=== PATIENT | female | born 2000 | race Caucasian/White ===

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

== ENCOUNTER 2025-01-17 08:06 | Emergency (ER) | payer MEDICAID ==
[~2025-01-17] VITALS: Ht 157.5 cm; Wt 59.0 kg
[~2025-01-17 08:06] MED LIST: HYDR-4001 MT; IBUP-2029 MT
[2025-01-17 08:09] VITALS: BP 107/73; TEMP 37.2; O2SAT 99
[2025-01-17 08:14] VITALS: PULSE 99; RESP 22; O2SAT 99
[2025-01-17 08:34] LABS: BASOPHILS % 0.3 % (0.0-2.0); EOSINOPHILS % 0.1 % (0.0-5.0); HEMATOCRIT. 39.1 % (36.0-48.0); HEMOGLOBIN. 13.4 g/dL (12.0-16.0); LYMPHOCYTES % 8.5 % (20.0-50.0); MEAN CORPUSCULAR HEMOGLOBIN 31.4 pg (28.0-32.0); MEAN CORPUSCULAR HGB CONC 34.3 g/dL (31.0-37.0); MEAN CORPUSCULAR VOLUME 91.6 fL (81.0-99.0); MONOCYTES % 3.6 % (2.0-8.0); NEUTROPHILS % 87.5 % (40.0-76.0); PLATELET 265 x1000/uL (130-400); RED BLOOD CELL COUNT 4.26 mill/uL (4.2-5.4); RED CELL DISTRIBUTION WIDTH 13.4 % (11.6-14.6); WHITE BLOOD COUNT 9.5 x1000/uL (4.5-11.0)
[2025-01-17] MEDS ORDERED: ONDANSETRON 4MG ODT PO STA (08:38)
[2025-01-17] MEDS ORDERED: ACETAMINOPHEN 325MG TABLET PO STA (08:38)
[2025-01-17] MEDS ORDERED: MAGNESIUM/ALUMINUM HYDROXIDE/SIMETHICONE 30ML UDC PO STA (08:38)
[2025-01-17 08:45] LABS: CHLORIDE 107 mEq/L (98-107); POTASSIUM 3.2 mEq/L (3.5-5.1); SODIUM 142 mEq/L (136-145)
[2025-01-17] MEDS ORDERED: FAMOTIDINE 20MG TABLET PO ONE (08:45)
[2025-01-17 08:46] LABS: CALCIUM 8.7 mg/dL (8.7-10.4); CARBON DIOXIDE 23 mEq/L (21-32)
[2025-01-17 08:51] LABS: CREATININE 0.7 mg/dL (0.6-1.0); GLUCOSE 136 mg/dL (70-105); UREA NITROGEN BLOOD 7 mg/dL (9-23)
[2025-01-17 08:53] LABS: INR 1.2; PROTHROMBIN TIME 13.1 sec (9.6-11.0)
[2025-01-17 09:01] LABS: HCG SCREEN NEGATIVE
[2025-01-17 09:05] LABS: ETHANOL BLOOD 74 mg/dL (<10)
[2025-01-17 09:06] LABS: ALANINE AMINOTRANSFERASE 22 IU/L (10-49); ALBUMIN 4.5 g/dL (3.2-4.8); ASPARTATE AMINOTRANSFERASE 24 IU/L (<34); BILIRUBIN DIRECT 0.1 mg/dL (<=3.0); BILIRUBIN TOTAL 0.3 mg/dL (0.1-1.0)
[2025-01-17 09:07] LABS: PROTEIN TOTAL 6.8 g/dL (6.0-8.3)
[2025-01-17 10:10] LABS: CLARITY URINE CLOUDY (CLEAR); COLOR URINE RED (YELLOW); GLUCOSE URINE NEGATIVE (NEGATIVE); KETONES URINE TRACE (NEGATIVE); LEUKOCYTE ESTERASE URINE 1+ (NEGATIVE); NITRITE URINE NEGATIVE (NEGATIVE); OCCULT BLOOD URINE 3+ (NEGATIVE); PROTEIN URINE 2+ (NEGATIVE); SPECIFIC GRAVITY URINE 1.023 (1.005-1.030)
[2025-01-17 10:22] LABS: RBC URINE TNTC /hpf (0-2)
[2025-01-17 10:23] LABS: SQUAMOUS EPITHELIAL CELL URINE 2+ /lpf (RARE/1+)
[2025-01-17 10:25] LABS: BACTERIA URINE 3+
[2025-01-17 10:54] LABS: *AMPHETAMINES SCREEN URINE NEGATIVE (NEGATIVE); *BARBITURATES SCREEN URINE NEGATIVE (NEGATIVE); *BENZODIAZEPINES SCREEN URINE NEGATIVE (NEGATIVE); *COCAINE SCREEN URINE NEGATIVE (NEGATIVE); CANNABINOID URINE SCREEN PRESUMPTIVE POSITIVE (NEGATIVE); ECSTASY MDMA SCREEN URINE NEGATIVE (NEGATIVE); METHADONE URINE SCREEN NEGATIVE (NEGATIVE); OPIATES URINE SCREEN NEGATIVE (NEGATIVE); PHENCYCLIDINE URINE SCREEN NEGATIVE (NEGATIVE)
== END 2025-01-17 08:49 | disposition left against medical advice (07) ==
LOC: ER 08:06
DX: R10.9 Unspecified abdominal pain (principal); R11.0 Nausea; Z53.21 Procedure and treatment not carried out due to patient leaving prior to being seen by health care provider
CPT/HCPCS: 36415; 80048; 80076; 80305; 80320; 81003; 84703; 85025; G0480